=== PATIENT | female | born 1980 | race African-American/Black ===

== ENCOUNTER 2017-01-02 15:35 | Emergency (ER) | payer OTHER ==
[~2017-01-02] VITALS: Ht 162.6 cm; Wt 86.0 kg
[~2017-01-02 15:35] MED LIST: BACL10TA PO; DICL75 PO; TYLE3 PO
[2017-01-02 15:39] VITALS: BP 159/107; PULSE 80; RESP 16; TEMP 98.8; O2SAT 96
[2017-01-02] MEDS ORDERED: MULTTAB67 PO (15:45)
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
== END 2017-01-02 16:43 | disposition home or self-care (01) ==
LOC: NEPD 15:35
DX: Z77.21 Contact with and (suspected) exposure to potentially hazardous body fluids (principal)
CPT/HCPCS: 99281

== ENCOUNTER 2017-05-24 21:44 | Emergency (ER) | payer OTHER ==
[~2017-05-24] VITALS: Ht 162.6 cm; Wt 90.0 kg
[~2017-05-24 21:44] MED LIST changes: -BACL10TA PO; -DICL75 PO; +MULTTAB67 PO; -TYLE3 PO
[2017-05-24 21:45] VITALS: BP 170/79; PULSE 121; RESP 18; TEMP 99.6; O2SAT 98
[2017-05-24] MEDS ORDERED: SODIUM CHLOR 0.9% 1000 ML INJ 1,000 ML IV ONE ×2 (22:11)
[2017-05-24] MEDS ORDERED: SODIUM CHLOR 0.9% 1000 ML INJ 700 ML IV ONE (22:11)
--- NOTE | 2017-05-24 22:20 | PD ---
HPI Chief Complaint: Fever Time Seen by Provider: 22:06 Travel History International Travel<30 days: No Contact w/Intl Traveler<30days: No Traveled to known affect area: No History of Present Illness HPI 36 yo complains of sore throat and cough. She was seen in urgent care clinic today and was given prednisone albuterol and Omnicef with diagnoses to include sinusitis and bronchitis. Persistent fever this afternoon observed thus prompting ED evaluation. Duration about 2 days. Omnicef does not seem to have made a difference. PFSH Past Medical History Medical History: Denies Significant Hx ?: Not Past Surgical History Oral Surgery: Yes Social History Alcohol Use: Yes (OCCASIONALLY) Tobacco Use: No Substance Use: No Allergies-Medications (Allergen,Severity, Reaction): Coded Allergies: No Known Allergies (Unverified Allergy, Unknown, 05/24/17) Reported Meds & Prescriptions Reported Meds & Active Scripts Active Tamiflu (Oseltamivir Phosphate) 75 Mg Cap 75 Mg PO DAILY 7 Days Reported Multiple Vitamin 1 Tab 1 Tab PO DAILY Review of Systems Except as stated in HPI: all other systems reviewed are Neg Physical Exam Narrative GENERAL: 36-year-old female well-nourished well-developed male in moderate distress SKIN: Focused skin assessment warm/dry. HEAD: Atraumatic. Normocephalic. EYES: Pupils equal and round. No scleral icterus. No injection or drainage. ENT: No nasal bleeding or discharge. Mucous membranes pink and moist. Posterior oropharynx widely patent. NECK: Trachea midline. No JVD. CARDIOVASCULAR: Regular rate and rhythm. No murmur appreciated. RESPIRATORY: No accessory muscle use. Clear to auscultation. Breath sounds equal bilaterally. GASTROINTESTINAL: Abdomen soft, non-tender, nondistended. Hepatic and splenic margins not palpable. MUSCULOSKELETAL: No obvious deformities. No clubbing. No cyanosis. No edema. NEUROLOGICAL: Awake and alert. No obvious cranial nerve deficits. Motor grossly within normal limits. Normal speech. PSYCHIATRIC: Appropriate mood and affect; insight and judgment normal. Data Data Last Documented VS Vital Signs Date Time Temp Pulse Resp B/P (MAP) Pulse Ox O2 Delivery O2 Flow Rate FiO2 05/25/17 01:11 05/24/17 22:45 14 97 Room Air 05/24/17 21:45 99.6 121 Orders Orders Complete Blood Count With Diff (05/24/17 22:11) Comprehensive Metabolic Panel (05/24/17 22:11) Urinalysis - C+S If Indicated (05/24/17 22:11) Influenzae A/B Antigen (05/24/17 22:11) Chest, Single Ap (05/24/17 22:11) Ecg Monitoring (05/24/17 22:11) Iv Access Insert/Monitor (05/24/17 22:11) Oximetry (05/24/17 22:11) Sodium Chlor 0.9% 1000 Ml Inj (Ns 1000 M (05/24/17 22:11) Sodium Chlor 0.9% 1000 Ml Inj (Ns 1000 M (05/24/17 22:11) Sodium Chlor 0.9% 1000 Ml Inj (Ns 1000 M (05/24/17 22:11) Ed Discharge Order (05/24/17 23:43) Oseltamivir (Tamiflu) (05/25/17 00:00) Ketorolac Inj (Toradol Inj) (05/25/17 00:00) Labs Laboratory Tests Test 05/24/17 22:25 05/24/17 23:45 White Blood Count 9.1 TH/MM3 Red Blood Count 4.69 MIL/MM3 Hemoglobin 14.7 GM/DL Hematocrit 41.6 % Mean Corpuscular Volume 88.7 FL Mean Corpuscular Hemoglobin 31.3 PG Mean Corpuscular Hemoglobin Concent 35.3 % Red Cell Distribution Width 14.2 % Platelet Count 248 TH/MM3 Mean Platelet Volume 9.4 FL Neutrophils (%) (Auto) 72.8 % Lymphocytes (%) (Auto) 16.1 % Monocytes (%) (Auto) 10.1 % Eosinophils (%) (Auto) 0.5 % Basophils (%) (Auto) 0.5 % Neutrophils # (Auto) 6.6 TH/MM3 Lymphocytes # (Auto) 1.5 TH/MM3 Monocytes # (Auto) 0.9 TH/MM3 Eosinophils # (Auto) 0.0 TH/MM3 Basophils # (Auto) 0.0 TH/MM3 CBC Comment DIFF FINAL Differential Comment Blood Urea Nitrogen 6 MG/DL Creatinine 0.88 MG/DL Random Glucose 121 MG/DL Total Protein 7.7 GM/DL Albumin 3.6 GM/DL Calcium Level 8.6 MG/DL Alkaline Phosphatase 56 U/L Aspartate Amino Transf (AST/SGOT) 14 U/L Alanine Aminotransferase (ALT/SGPT) 18 U/L Total Bilirubin 0.3 MG/DL Sodium Level 137 MEQ/L Potassium Level 3.3 MEQ/L Chloride Level 107 MEQ/L Carbon Dioxide Level 21.6 MEQ/L Anion Gap 8 MEQ/L Estimat Glomerular Filtration Rate 88 ML/MIN Urine Color LIGHT-YELLOW Urine Turbidity CLEAR Urine pH 5.5 Urine Specific [place] 1.010 Urine Protein NEG mg/dL Urine Glucose (UA) NEG mg/dL Urine Ketones NEG mg/dL Urine Occult Blood NEG Urine Nitrite NEG Urine Bilirubin NEG Urine Urobilinogen LESS THAN 2.0 MG/DL Urine Leukocyte Esterase MOD Urine RBC 5 /hpf Urine WBC 6 /hpf Urine Squamous Epithelial Cells 1 /hpf Urine Mucus FEW /lpf Microscopic Urinalysis Comment CATH-CULT NOT IND MDM Medical Decision Making Medical Screen Exam Complete: Yes Emergency Medical Condition: Yes Medical Record Reviewed: Yes Differential Diagnosis influenza pneumonia or bronchitis Narrative Course CBC & BMP Diagram 05/24/17 22:25 Total Protein 7.7, Albumin 3.6, Calcium Level 8.6, Alkaline Phosphatase 56, Aspartate Amino Transf (AST/SGOT) 14 L, Alanine Aminotransferase (ALT/SGPT) 18, Total Bilirubin 0.3 Influenza assay is positive The chest x-ray shows no pneumonia or other acute cardiopulmonary disease Patient will receive Tamiflu here. She also received 3 L of normal saline. Diagnosis Primary Impression: Influenza Med/Other Pt SpecificInfo: Prescription(s) given Scripts Oseltamivir (Tamiflu) 75 Mg Cap 75 MG PO DAILY for Mgmt Viral Infection for 7 Days, #7 CAP 0 Refills Prov: Asif Quiñones MD 05/24/17 Disposition: 01 DISCHARGE HOME Condition: Stable Asif Quiñones MD May 24, 2017 22:20
--- NOTE | 2017-05-24 22:37 | RADRPT ---
EXAM DATE/TIME: 05/24/2017 22:29 [place] COMPARISON: No previous studies available for comparison. INDICATIONS : Fever and cough. MEDICAL HISTORY : None. SURGICAL HISTORY : None. ENCOUNTER: Initial ACUITY: 1 day PAIN SCORE: 0/10 LOCATION: Bilateral chest FINDINGS: A single view of the chest demonstrates the lungs to be symmetrically aerated without evidence of mas s, infiltrate or effusion. The cardiomediastinal contours are unremarkable. Osseous structures are intact. CONCLUSION: Normal examination. Aiden Milian MD on May 24, 2017 at 22:35 Board Certified Radiologist. This report was verified electronically.
[2017-05-24 22:43] LABS: AUTOMATED NEUTROPHIL # 6.6 TH/MM3 (1.8-7.7); BASOPHIL % 0.5 % (0.0-2.0); EOSINOPHIL % 0.5 % (0.0-4.0); HEMATOCRIT 41.6 % (35.0-46.0); HEMOGLOBIN 14.7 GM/DL (11.6-15.3); LYMPH % 16.1 % (9.0-44.0); LYMPHOCYTE # 1.5 TH/MM3 (1.0-4.8); MEAN CELL VOLUME 88.7 FL (80.0-100.0); MEAN CORPUSCULAR HEMOGLOBIN 31.3 PG (27.0-34.0); MEAN CORPUSCULAR HGB CONC 35.3 % (32.0-36.0); MEAN PLATELET VOLUME 9.4 FL (7.0-11.0); MONO % 10.1 % (0.0-8.0); MONOCYTE # 0.9 TH/MM3 (0-0.9); NEUT % 72.8 % (16.0-70.0); PLATELET COUNT 248 TH/MM3 (150-450); RED BLOOD COUNT 4.69 MIL/MM3 (4.00-5.30); RED CELL DISTRIBUTION WIDTH 14.2 % (11.6-17.2); WHITE BLOOD COUNT 9.1 TH/MM3 (4.0-11.0)
[2017-05-24 22:45] VITALS: RESP 14; O2SAT 97
[2017-05-24 22:59] LABS: ALBUMIN 3.6 GM/DL (3.4-5.0); ALT (GPT) 18 U/L (10-53); AST (GOT) 14 U/L (15-37); BICARBONATE 21.6 MEQ/L (21.0-32.0); BLOOD UREA NITROGEN 6 MG/DL (7-18); CALCIUM 8.6 MG/DL (8.5-10.1); CHLORIDE 107 MEQ/L (98-107); CREATININE 0.88 MG/DL (0.50-1.00); GLOMERULAR FILTRATION RATE 88 ML/MIN (>89); GLUCOSE,RANDOM 121 MG/DL (74-106); SODIUM (NA) 137 MEQ/L (136-145)
[2017-05-24 23:01] LABS: ALKALINE PHOSPHATASE 56 U/L (45-117); TOTAL BILIRUBIN ADULT 0.3 MG/DL (0.2-1.0); TOTAL PROTEIN 7.7 GM/DL (6.4-8.2)
[2017-05-24] MEDS ORDERED: OSEL75 PO (23:43)
[2017-05-24 23:54] LABS: BILIRUBIN, URINE NEG (NEG); BLOOD, URINE NEG (NEG); GLUCOSE,URINE NEG (NEG); KETONE, URINE NEG (NEG); MUCUS URINE FEW /lpf (OCC); NITRITE,URINE NEG (NEG); PH, URINE 5.5 (5.0-8.5); SQUAMOUS EPITHELIAL CELL URINE 1 /hpf (0-5); URINE COLOR LIGHT-YELLOW (YELLW/STRAW); URINE LEUKOCYTE ESTERASE MOD (NEG)
[2017-05-25] MEDS ORDERED: OSELTAMIVIR PHOSPHATE 75 MG CAP PO ONE
[2017-05-25] MEDS ORDERED: KETOROLAC TROMETHAMINE 30 MG/ML (IVP) VIAL IV PUSH ONE
== END 2017-05-25 01:20 | disposition home or self-care (01) ==
LOC: NEPC 21:44
DX: J11.1 Influenza due to unidentified influenza virus with other respiratory manifestations (principal); J32.9 Chronic sinusitis, unspecified
CPT/HCPCS: 71010; 80053; 81001; 85025; 87804; 96361; 96374; 99284; J1885; J7030